=== PATIENT | female | born 1995 | race Hispanic/Latino ===

== ENCOUNTER 2017-09-14 19:44 | Emergency (ER) | payer OTHER ==
[2017-09-14] MEDS ORDERED: Metoclopramide HCl 10 MG/2 ML VIAL ONE (20:18)
[2017-09-14] MEDS ORDERED: diphenhydrAMINE 50 MG/ML VIAL ONE (20:18)
[2017-09-14 20:48] LABS: #Basophils 0.1 thou/uL (0.0-0.2); #Eosinphils 0.1 thou/uL (0.0-0.7); #Lymphocytes 3.3 thou/uL (1.20-3.40); #Monocytes 0.7 thou/uL (0.11-0.59); #Neutrophils 5.5 thou/uL (1.40-6.50); %Basophils 1.2 % (0.0-1.0); %Eosinophils 1.1 % (0.0-10.0); %Lymphocytes 33.9 % (21.0-51.0); %Monocytes 7.3 % (0.0-10.0); Hematocrit 42.2 % (36.0-47.0); Mean Platelet Volume 8.8 fL (7.4-10.4); Red Blood Cell (RBC) Count 4.56 mill/uL (4.20-5.40); White Blood Cell (WBC) Count 9.8 thou/uL (4.8-10.8)
[2017-09-14 21:08] LABS: ALT (SGPT) 58 U/L (8-55); AST (SGOT) 31 U/L (5-34); Alkaline Phosphatase 83 U/L (40-150); Anion Gap 12 mmol/L (10-20); BUN (Urea Nitrogen) 8 mg/dL (7.0-18.7); Bilirubin, Total 0.3 mg/dL (0.2-1.2); Calc. Creatinine Clearance 0 mL/min (70-130); Calcium 9.9 mg/dL (7.8-10.44); Carbon Dioxide 28 mmol/L (22-29); Chloride 105 mmol/L (98-107); Estimated GFR-MDRD 81; Globulin 3.4 g/dL (2.4-3.5); Protein, Total 7.5 g/dL (6.0-8.3)
== END 2017-09-14 21:30 | disposition home or self-care (01) ==
LOC: ERS 19:44
DX: R51 Headache (principal); D76.3 Other histiocytosis syndromes
CPT/HCPCS: 80053; 85025; 96365; 96375; J1200; J2765

== ENCOUNTER 2017-12-11 04:39 | Emergency (ER) | payer OTHER ==
[2017-12-11 06:10] LABS: #Lymphocytes 2.2 thou/uL (1.20-3.40); #Monocytes 0.5 thou/uL (0.11-0.59); #Neutrophils 7.1 thou/uL (1.40-6.50); %Basophils 0.3 % (0.0-1.0); %Eosinophils 0.1 % (0.0-10.0); %Lymphocytes 22.3 % (21.0-51.0); %Monocytes 4.9 % (0.0-10.0); %Neutrophils 72.4 % (42.0-75.0); Hemoglobin 13.3 g/dL (12.0-16.0); Mean Corpuscular HGB CONC 33.8 g/dL (32.0-36.0); Mean Corpuscular Volume 94.9 fl (81.0-99.0); Mean Platelet Volume 8.4 fL (7.4-10.4); Platelet Count 336 thou/uL (130-400); RBC Distribution Width 11.5 % (11.5-14.5); Red Blood Cell (RBC) Count 4.14 mill/uL (4.20-5.40); White Blood Cell (WBC) Count 9.8 thou/uL (4.8-10.8)
[2017-12-11 06:13] LABS: BHCG - Serum Negative (NEGATIVE); Pregs Control Background? CLEAR/WHITE (CLR/WHITE); Pregs Control Bar Appear? YES (CONTROL BAR)
[2017-12-11 06:23] LABS: Bilirubin Negative (Negative); Blood, Urine Small (Negative); Clarity CLEAR (Clear); Glucose, Urine (Dipstick) Negative (Negative); Leukocyte Negative (Negative); Nitrite Negative (Negative); Protein, Urine (Dipstick) Negative (Neg-Trace); Specific Gravity, Urine 1.015 (1.002-1.036); Urobilinogen 0.2 mg/dL (0.2-1.0); pH, Urine 5.5 (5.0-9.0)
[2017-12-11 06:26] LABS: Bacteria/HPF None Seen HPF (None Seen); Hyaline Casts/LPF 0-3 HYALINE CAST LPF (0-3 Hyaline); Pathc Cast-AUWi Flag 0.27 (0-2.49); Squamous Epithelial 0-3 HPF (0-3); WBC/HPF None Seen HPF (0-3)
[2017-12-11 06:31] LABS: ALT (SGPT) 24 U/L (8-55); AST (SGOT) 23 U/L (5-34); Albumin 4.1 g/dL (3.5-5.0); Alkaline Phosphatase 92 U/L (40-150); Anion Gap 13 mmol/L (10-20); BUN (Urea Nitrogen) 6 mg/dL (7.0-18.7); Bilirubin, Total 0.4 mg/dL (0.2-1.2); Calc. Creatinine Clearance 0 mL/min (70-130); Carbon Dioxide 22 mmol/L (22-29); Chloride 108 mmol/L (98-107); Estimated GFR-MDRD Greater than 90; Glucose 102 mg/dL (70-105); Lipase 11 U/L (8-78); Potassium 3.8 mmol/L (3.5-5.1); Protein, Total 7.1 g/dL (6.0-8.3); Sodium 139 mmol/L (136-145)
--- NOTE | 2017-12-11 08:03 | RAD ---
RADIOGRAPH CHEST 1 VIEW: HISTORY: A 22-year-old female with 2 days of acute chest pain. FINDINGS: The visualized lung ashby are clear. The cardiomediastinal silhouette and hilar shadows are normal. The lateral costophrenic angles are sharp. The osseous structures appear normal. There is no pneu mothorax. IMPRESSION: Negative. laure [] POS: [facility]
== END 2017-12-11 19:30 | disposition home or self-care (01) ==
LOC: ERS 04:39
DX: R07.9 Chest pain, unspecified (principal); R53.1 Weakness
CPT/HCPCS: 36415; 71045; 80053; 81003; 81015; 83690; 84703; 85025; 93005

== ENCOUNTER 2018-04-16 21:58 | Emergency (ER) | payer OTHER ==
[2018-04-16] MEDS ORDERED: Adacel (T-DAP) 0.5 ML VIAL ONE (23:32)
== END 2018-04-16 23:40 | disposition home or self-care (01) ==
LOC: ERS 21:58
DX: S91.052A Open bite, left ankle, initial encounter (principal); Z23 Encounter for immunization; Z79.899 Other long term (current) drug therapy; W59.11XA Bitten by nonvenomous snake, initial encounter
CPT/HCPCS: 90471; 90715

== ENCOUNTER 2019-02-07 17:18 | Emergency (ER) | payer OTHER ==
[2019-02-07 17:58] LABS: #Basophils 0.1 thou/uL (0.0-0.2); #Eosinphils 0.1 thou/uL (0.0-0.7); #Lymphocytes 2.6 thou/uL (1.20-3.40); #Monocytes 0.9 thou/uL (0.11-0.59); #Neutrophils 7.2 thou/uL (1.40-6.50); %Basophils 0.8 % (0.0-1.0); %Eosinophils 0.7 % (0.0-10.0); %Lymphocytes 23.9 % (21.0-51.0); %Neutrophils 66.5 % (42.0-75.0); Hemoglobin 13.4 g/dL (12.0-16.0); Mean Corpuscular HGB CONC 33.6 g/dL (32.0-36.0); Mean Corpuscular Hemoglobin 30.6 pg (27.0-31.0); Mean Corpuscular Volume 91.1 fL (78.0-98.0); Mean Platelet Volume 8.2 fL (7.4-10.4); Platelet Count 362 thou/uL (130-400); RBC Distribution Width 11.7 % (11.5-14.5); Red Blood Cell (RBC) Count 4.39 mill/uL (4.20-5.40); White Blood Cell (WBC) Count 10.8 thou/uL (4.8-10.8)
[2019-02-07 18:17] LABS: BHCG - Serum POSITIVE (NEGATIVE); Pregs Control Background? CLEAR/WHITE (CLR/WHITE); Pregs Control Bar Appear? YES (CONTROL BAR)
--- NOTE | 2019-02-07 22:07 | ULT ---
PELVIC ULTRASOUND 02/07/19 INDICATION: with vaginal bleeding. COMPARISON: None. FINDINGS: There is an intrauterine gestational sac with yolk sac and pole identified but no associated fe lena heart tones. No free fluid is evident. The uterus measures 9.5 x 6.1 x 7 cm. Right ovary measures 3.1 x 2.2 x 2.2 cm. Left ovary is not well visualized. There is a hypoechoic, hypervascular 2.1 cm l esion within the right ovary suspicious for corpus luteum. The gestational age estimated based on ultrasound is 7 weeks and 3 days with estimated due date of 09/23/19. Gestational age based on LMP was 10 weeks, 2 days with estimated due date of 09/03/19. IMPRESSION: 1. Intrauterine gestational sac with yolk sac and pole but with no detected heart to celeste most consistent with intrauterine demise. 2. Corpus luteal cyst of the right adnexa. 3. Nonvisualization of the left ovary. POS: BH
== END 2019-02-07 21:38 | disposition home or self-care (01) ==
LOC: ERS 17:18
DX: O03.9 Complete or unspecified spontaneous abortion without complication (principal)
CPT/HCPCS: 36415; 76856; 84702; 84703; 85025; 86850; 86900; 86901